=== PATIENT | male | born 1995 | race Caucasian/White ===

== ENCOUNTER 2020-12-06 14:14 | Emergency (ER) | payer BC, OTHER ==
[~2020-12-06] VITALS: Ht 185.4 cm; Wt 79.4 kg
[2020-12-06 16:27] LABS: CALCIUM 9.1 mg/dL (8.5-10.1); CREATININE 1.3 mg/dL (0.7-1.3); POTASSIUM 3.6 mmol/L (3.5-5.1)
[2020-12-06 16:35] LABS: ALBUMIN 4.4 g/dL (3.4-5.0); TOTAL BILIRUBIN 0.7 mg/dL (0.2-1.0); TOTAL PROTEIN 7.7 g/dL (6.4-8.2)
[2020-12-06 17:27] VITALS: BP 125/76
[2020-12-06] MEDS ORDERED: MEDROL DOSPAK21 TA1 PO (17:27)
== END 2020-12-06 17:27 | disposition home or self-care (01) ==
LOC: ER 14:14
PROVIDERS: Student in an Organized Health Care Education/Training Program
DX: T78.1XXA Other adverse food reactions, not elsewhere classified, initial encounter (principal); R06.2 Wheezing; Z91.018 Allergy to other foods; Z91.010 Allergy to peanuts; X58.XXXA Exposure to other specified factors, initial encounter